=== PATIENT | female | born 1950 | race Caucasian/White ===

== ENCOUNTER 2024-07-29 12:50 | Outpatient (RCR) | payer MEDICARE, SELFPAY ==
[2024-07-29 13:00] VITALS: BP 136/80
[2024-07-29] MEDS: RECLAST 100 IV (13:16)
[2024-07-29 14:03] VITALS: BP 125/87
== END 2024-07-30 09:11 | disposition home or self-care (01) ==
LOC: OID 12:50
PROVIDERS: ATTENDING PHYSICIAN Internal Medicine Endocrinology, Diabetes & Metabolism; FAMILY PHYSICIAN Family Medicine
DX: M81.0 Age-related osteoporosis without current pathological fracture (principal)
CPT/HCPCS: 96365; J3489